=== PATIENT | female | born 1990 | race Caucasian/White ===

== ENCOUNTER 2018-12-12 01:03 | Emergency (ER) | payer OTHER ==
[~2018-12-12] VITALS: Ht 154.9 cm; Wt 72.6 kg
[2018-12-12 01:05] VITALS: BP 124/77
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
== END 2018-12-12 02:00 | disposition home or self-care (01) ==
LOC: ER 01:03
DX: Z20.5 Contact with and (suspected) exposure to viral hepatitis (principal); Z98.890 Other specified postprocedural states
CPT/HCPCS: 86703; 86705; 86709; 86803; 87340; 99284